=== PATIENT | male | born 1975 | race Caucasian/White ===

== ENCOUNTER 2017-05-21 13:26 | Inpatient (IN) | payer OTHER ==
[~2017-05-21] VITALS: Ht 162.6 cm; Wt 54.2 kg
[2017-05-21] MEDS ORDERED: SOD CHLORIDE 0.9% 1,000 ML IV STA (14:45)
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
[2017-05-21 15:57] LABS: ABNORMAL IP MESSAGE 1; BASOPHIL # 0.1 10^3/ul (0.0-0.1); BASOPHILS % 1.1 % (0.0-2.0); EOSINOPHILS % 0.1 % (0.0-7.0); HEMATOCRIT 34.8 % (42.0-52.0); HEMOGLOBIN 11.6 g/dl (14.0-18.0); LYMPHOCYTES % 12.2 % (15.0-51.0); MEAN CORPUSCULAR HEMOGLOBIN 35.2 pg (29.0-33.0); MEAN CORPUSCULAR HGB CONC 33.3 g/dl (32.0-37.0); MEAN CORPUSCULAR VOLUME 105.5 fl (82.0-101.0); MEAN PLATELET VOLUME 9.8 fl (7.4-10.4); MONOCYTE # 1.5 10^3/ul (0.3-0.9); MONOCYTES % 18.6 % (0.0-11.0); NEUTROPHILS % 67.3 % (39.0-77.0); PLATELET COUNT 177 10^3/UL (140-415); POSITIVE DIFF @See below; RED CELL DISTRIBUTION WIDTH 12.2 % (11.5-14.5); WHITE BLOOD COUNT 8.3 10^3/ul (4.8-10.8)
[2017-05-21 16:15] LABS: ALANINE AMINOTRANSFERASE 260 IU/L (13-69); ALBUMIN 5.2 g/dl (3.3-4.9); ALBUMIN/GLOBULIN RATIO 1.44; ALKALINE PHOSPHATASE 112 IU/L (42-121); ANION GAP 17 (8-16); ASPARTATE AMINO TRANSFERASE 304 IU/L (15-46); BILIRUBIN,INDIRECT 1.3 mg/dl (0-1.1); BILIRUBIN,TOTAL 1.3 mg/dl (0.2-1.3); BLOOD UREA NITROGEN 11 mg/dl (7-20); CALCIUM 10.5 mg/dl (8.4-10.2); CARBON DIOXIDE 25 mmol/L (21-31); CHLORIDE 107 mmol/L (97-110); CREATININE 0.81 mg/dl (0.61-1.24); GLUCOSE 106 mg/dl (70-220); POTASSIUM 3.7 mmol/L (3.5-5.1); SODIUM 145 mmol/L (135-144); TOTAL PROTEIN 8.8 g/dl (6.1-8.1)
[2017-05-21 16:25] LABS: ACETAMINOPHEN < 10.0 ug/ml (10.0-30.0); ETHANOL < 10.0 mg/dl; SALICYLATE < 1.0 mg/dl (5.0-30.0)
[2017-05-21 16:55] LABS: BARBITURATES NEGATIVE (NEGATIVE); BENZODIAZEPINES NEGATIVE (NEGATIVE); CANNABINOIDS NEGATIVE (NEGATIVE); COCAINE NEGATIVE (NEGATIVE); OPIATES NEGATIVE (NEGATIVE)
[2017-05-21] MEDS ORDERED: LORAZEPAM 2 MG INJ ONE (17:26)
[2017-05-21] MEDS ORDERED: LORAZEPAM 2 MG INJ IV ONE ×2 (18:00)
[2017-05-21] MEDS ORDERED: HALOPERIDOL 5 MG INJ IM ONE (18:30)
--- NOTE | 2017-05-21 18:50 | PSY ---
Date/Time of Note Date/Time of Note DATE: 05/21/17 TIME: 18:44 Psychiatric Subjective Eval Consent Pt consented to telemedicine: Yes Subjective Evaluation Patient location: emergency Chief Complaint: [employer] FROM [facility] WITH HALLUCINATIONS WAS GIVEN PSYCH MEDS AT [facility] Reason for consult: Psychosis History of present illness Pt was reportedly arrested and in retirement. He was acting bizarre and psychotic - reporting that he was bit by a spider and going to turn into spiderman. Patient in restraints on gurney. Speech is fast. He appears confused. Speaks Croatian. Officer assisted. Reports seeing imaged. Denies psychiatric history. Reports he is in hospital because " was flirting with another joey, Jesús." Past psychiatric history Denies Hospitalization: no Medical history Problems Medical Problems: (1) Psychosis Status: Acute Allergies: Coded Allergies: Unknown: Unable to obtain (Unverified , 05/21/17) Substance Abuse Substance abuse history: Yes (Alcohol) Social History Level of education: Unknown Occupation/Correction: Unknown Psychiatric Objective Eval Mental Status Examination: Appearance: Disheveled Eye Contact: Poor Psychomotor Activity: Agitated Behavior: Agitated Speech: Pressured AFFECT: Anxious Though Process: Loose Thought Content: Delusions, Hallucinations Suicidal: No Homicidal: No Orientation: x2 Cognition: Alert Insight: Impared Judgement: Impared Laboratory Results Laboratory Tests Test 05/21/17 15:35 05/21/17 15:53 White Blood Count 8.310^3/ul Red Blood Count 3.3010^6/ul Hemoglobin 11.6g/dl Hematocrit 34.8% Mean Corpuscular Volume 105.5fl Mean Corpuscular Hemoglobin 35.2pg Mean Corpuscular Hemoglobin Concent 33.3g/dl Red Cell Distribution Width 12.2% Platelet Count 94561^3/UL Mean Platelet Volume 9.8fl Neutrophils % 67.3% Lymphocytes % 12.2% Monocytes % 18.6% Eosinophils % 0.1% Basophils % 1.1% Nucleated Red Blood Cells % 0.0/100WBC Neutrophils # (Manual) 5.610^3/ul Lymphocytes # 1.010^3/ul Monocytes # 1.510^3/ul Eosinophils # 0.010^3/ul Basophils # 0.110^3/ul Nucleated Red Blood Cells # 0.010^3/ul Sodium Level 145mmol/L Potassium Level 3.7mmol/L Chloride Level 107mmol/L Carbon Dioxide Level 25mmol/L Anion Gap 17 Blood Urea Nitrogen 11mg/dl Creatinine 0.81mg/dl Glucose Level 106mg/dl Calcium Level 10.5mg/dl Total Bilirubin 1.3mg/dl Direct Bilirubin 0.00mg/dl Indirect Bilirubin 1.3mg/dl Aspartate Amino Transf (AST/SGOT) 304IU/L Alanine Aminotransferase (ALT/SGPT) 260IU/L Alkaline Phosphatase 112IU/L Total Protein 8.8g/dl Albumin 5.2g/dl Globulin 3.60g/dl Albumin/Globulin Ratio 1.44 Salicylates Level < 1.0mg/dl Acetaminophen Level < 10.0ug/ml Ethyl Alcohol Level < 10.0mg/dl Urine Opiates Screen NEGATIVE Urine Barbiturates NEGATIVE Urine Amphetamines Screen NEGATIVE Urine Benzodiazepines Screen NEGATIVE Urine Cocaine Screen NEGATIVE Urine Cannabinoids NEGATIVE Assessment and Plan Assessment/Diagnosis [place] I: Unspecified Psychotic Disorder Recommendation/Plan Medication Management Support possible alcohol withdrawal. Psychotherapy N/A Pt. Caregiver/Family Education N/A Follow-up/Disposition Suspect this psychosis is drug related rather than primary psychiatric ( although could be both). Pt was diaphoretic, confused, responding and restless. Lab abnormalities noted. Would err on caution and admit for medical support of possible alcohol related w/d/psychosis/DTs. Recommend sitter. Consider checking TSH as well. Psychiatry re-evaluation once medically stable. NGUYEN AMOR May 21, 2017 18:49
[2017-05-21] MEDS ORDERED: OLANZAPINE 10 MG VIAL IM ONE (19:00)
[2017-05-21] MEDS ORDERED: DIPHENHYDRAMINE 50 MG INJ IM ONE (19:00)
[2017-05-21 20:30] VITALS: TEMP 99.1
[2017-05-21] MEDS ORDERED: ONDANSETRON 4 MG INJ IV PRN (20:30)
[2017-05-21] MEDS ORDERED: DIAZEPAM 5 MG/ML SYG IM ONE (20:30)
[2017-05-21] MEDS ORDERED: ACETAMINOPHEN 650 MG SUPP PR PRN (20:30)
[2017-05-21] MEDS ORDERED: CLONIDINE 0.2 MG/24 HR PATCH TRANSDERM ONE (20:30)
--- NOTE | 2017-05-21 21:57 | RADRPT ---
PROCEDURE: Ultrasound right upper quadrant CLINICAL INDICATION: Elevated LFTs. TECHNIQUE: Barrera scale and color Doppler imaging of the right upper quadrant of the abdomen was perf ormed. COMPARISON: None available. FINDINGS: Pancreas: Not visualized due to overlying bowel gas. Liver: Diffuse increased echogenicity, consistent with fatty infiltration. No focal hepatic lesion. Hepatopedal flow in the main portal vein. Gallbladder: No cholelithiasis, wall thickening, or pericholecystic fluid. Common bile duct: 3 mm in diameter. Right Kidney: 10.6 cm in length.Normal echogenicity. No nephrolithiasis, hydronephrosis, or mass. IMPRESSION: 1. Hepatic steatosis. RPTAT: HLBP .Alexsander Rai MD, MD Date Time Electronically viewed and signed by .Alexsander Rai MD, on 05/21/2017 21:56 .P/
[2017-05-22] VITALS (35 sets, daily range): BP systolic 109–147; BP diastolic 71–96; PULSE 69–101; RESP 13–24; Ht 162.6 cm; Wt 54.2 kg
[2017-05-22] MEDS: LORAZEPAM 2 MG INJ IV PRN ×3 (00:25→21:27)
[2017-05-22] MEDS: DEXTROSE 5%-0.45% NACL 1,000 ML IV SCH ×4 (00:31→21:04)
[2017-05-22 05:13] LABS: BASOPHIL # 0.1 10^3/ul (0.0-0.1); BASOPHILS % 1.2 % (0.0-2.0); EOSINOPHILS # 0.1 10^3/ul (0.0-0.5); HEMATOCRIT 36.4 % (42.0-52.0); LYMPHOCYTES # 1.3 10^3/ul (0.8-2.9); MEAN CORPUSCULAR HEMOGLOBIN 34.9 pg (29.0-33.0); MEAN CORPUSCULAR VOLUME 105.8 fl (82.0-101.0); MONOCYTE # 1.1 10^3/ul (0.3-0.9); MONOCYTES % 18.4 % (0.0-11.0); NEUTROPHILS % 57.1 % (39.0-77.0); PLATELET COUNT 153 10^3/UL (140-415); POSITIVE DIFF @See below; RED BLOOD COUNT 3.44 10^6/ul (4.70-6.10); RED CELL DISTRIBUTION WIDTH 11.9 % (11.5-14.5)
[2017-05-22 05:34] LABS: ALBUMIN 4.6 g/dl (3.3-4.9); ALBUMIN/GLOBULIN RATIO 1.39; BILIRUBIN,INDIRECT 1.2 mg/dl (0-1.1); BILIRUBIN,TOTAL 1.2 mg/dl (0.2-1.3); CALCIUM 9.5 mg/dl (8.4-10.2); CREATININE 0.64 mg/dl (0.61-1.24); POTASSIUM 4.1 mmol/L (3.5-5.1); TOTAL PROTEIN 7.9 g/dl (6.1-8.1)
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
[2017-05-22] MEDS: MULTIVITAMINS 10 ML, THIAMINE 100 MG, FOLIC ACID 1 MG in SOD CHLORIDE 0.9% 1,000 ML IVPB SCH (10:11)
--- NOTE | 2017-05-22 17:13 | PN ---
Date/Time of Note Date/Time of Note DATE: 05/22/17 TIME: 17:12 Assessment/Plan VTE Prophylaxis VTE Prophylaxis Intervention: SCD's Lines/Catheters IV Catheter Type (from Nrs): Peripheral IV Assessment/Plan Chief Complaint/Hosp Course 1. Acute encephalopathy, secondary to alcohol intoxication/withdrawal -Continue banana bag, IV fluid - will provide Librium when patient able swallow after speech/swallow evaluation -Ativan as needed for withdrawal symptoms 2. Alcohol hepatitis -Abdominal ultrasound showed hepatic steatosis -Monitor for now 3. Alcohol abuse -Once patient is more oriented, abstinence will be enforced. Social work to help with that. Prophylaxis: SCDs Problems: Subjective 24 Hr Interval Summary Constitutional: disoriented Exam/Review of Systems Vital Signs Vitals Vital Signs Date Time Temp Pulse Resp B/P Pulse Ox O2 Delivery O2 Flow Rate FiO2 05/22/17 16:10 98.9 05/22/17 16:00 91 16 119/88 97 05/22/17 15:00 Room Air 05/22/17 12:00 2.0 Intake and Output 05/21/17 05/21/17 05/22/17 15:00 23:00 07:00 Intake Total 815 ml Output Total 50 ml Balance 765 ml Exam Psych: confusion Respiratory: clear to auscultation Cardiovascular: regular rate and rhythm Gastrointestinal: soft, No distended Musculoskeletal: nl extremities to inspection Results Result Diagram: 05/22/17 0454 05/22/17 0454 Results 24 hrs Laboratory Tests Test 05/22/17 04:54 White Blood Count 6.0 # Red Blood Count 3.44 L Hemoglobin 12.0 L Hematocrit 36.4 L Mean Corpuscular Volume 105.8 H Mean Corpuscular Hemoglobin 34.9 H Mean Corpuscular Hemoglobin Concent 33.0 Red Cell Distribution Width 11.9 Platelet Count 153 Mean Platelet Volume 11.0 H Neutrophils % 57.1 Lymphocytes % 21.0 Monocytes % 18.4 H Eosinophils % 2.0 Basophils % 1.2 Nucleated Red Blood Cells % 0.0 Neutrophils # (Manual) 3.4 Lymphocytes # 1.3 Monocytes # 1.1 H Eosinophils # 0.1 Basophils # 0.1 Nucleated Red Blood Cells # 0.0 Sodium Level 144 Potassium Level 4.1 Chloride Level 109 Carbon Dioxide Level 27 Anion Gap 12 Blood Urea Nitrogen 7 Creatinine 0.64 Glucose Level 100 Calcium Level 9.5 Magnesium Level 2.0 Total Bilirubin 1.2 Direct Bilirubin 0.00 Indirect Bilirubin 1.2 H Aspartate Amino Transf (AST/SGOT) 278 H Alanine Aminotransferase (ALT/SGPT) 206 H Alkaline Phosphatase 96 Total Protein 7.9 Albumin 4.6 Globulin 3.30 H Albumin/Globulin Ratio 1.39 Medications Medications Current Medications Dextrose/Sodium Chloride (D5-1/2ns) 1,000 ml @ 125 mls/hr Q8H IV Last administered on 05/22/17 10:12; Admin Dose 125 MLS/HR; Start 05/21/17 at 20:26 Ondansetron HCl (Zofran Inj) 4 mg Q6H PRN IV NAUSEA AND/OR VOMITING; Start 08/25 at 20:30 Acetaminophen (Tylenol Supp) 650 mg Q4H PRN [place] PAIN LEVEL 1-3 OR FEVER; Start 05/21/17 at 20:30 Lorazepam 1 mg 1 mg Q2H PRN IV ANXIETY Last administered on 05/22/17 12:58; Admin Dose 1 MG; Start 05/21/17 at 20:30 Multivitamins/ Thiamine HCl/ Folic Acid/Sodium Chloride (Mvi Adult/ Vitamin B1/ Folic Acid/NS) 1,011.2 ml @ 125 mls/ hr DAILY@09 IVPB Last administered on 10:11; Admin Dose 125 MLS/HR; Start 05/22/17 at 09:00; Stop 05/25/17 at 08:00 TARIQ LESTER May 22, 2017 17:13
[2017-05-23] VITALS (24 sets, daily range): BP systolic 71–115; BP diastolic 51–74; PULSE 75–97; RESP 16–31
[2017-05-23] MEDS: LORAZEPAM 2 MG INJ IV PRN ×2 (03:55→12:12)
[2017-05-23] MEDS: DEXTROSE 5%-0.45% NACL 1,000 ML IV SCH ×2 (03:55→12:12)
[2017-05-23 05:46] LABS: ALBUMIN 3.8 g/dl (3.3-4.9); ALBUMIN/GLOBULIN RATIO 1.26; BILIRUBIN,INDIRECT 1.3 mg/dl (0-1.1); BILIRUBIN,TOTAL 1.3 mg/dl (0.2-1.3); CALCIUM 8.8 mg/dl (8.4-10.2); CREATININE 0.73 mg/dl (0.61-1.24); TOTAL PROTEIN 6.8 g/dl (6.1-8.1)
[2017-05-23 06:08] LABS: POTASSIUM 2.9 mmol/L (3.5-5.1)
[2017-05-23] MEDS ORDERED: POTASSIUM CHLORIDE (SR) 20 MEQ TAB PO ONE (06:21)
[2017-05-23] MEDS: MULTIVITAMINS 10 ML, THIAMINE 100 MG, FOLIC ACID 1 MG in SOD CHLORIDE 0.9% 1,000 ML IVPB SCH (09:14)
--- NOTE | 2017-05-23 13:47 | PN ---
Date/Time of Note Date/Time of Note DATE: 05/23/17 TIME: 13:47 Assessment/Plan VTE Prophylaxis VTE Prophylaxis Intervention: SCD's Lines/Catheters IV Catheter Type (from Nrs): Peripheral IV Assessment/Plan Chief Complaint/Hosp Course 1. Acute encephalopathy, secondary to alcohol intoxication/withdrawal -Continue banana bag, IV fluid - will provide Librium when patient able swallow after speech/swallow evaluation -Ativan as needed for withdrawal symptoms 2. Alcohol hepatitis -Abdominal ultrasound showed hepatic steatosis -Monitor for now 3. Alcohol abuse -Once patient is more oriented, abstinence will be enforced. Social work to help with that. Prophylaxis: SCDs Problems: Subjective 24 Hr Interval Summary Constitutional: disoriented Exam/Review of Systems Vital Signs Vitals Vital Signs Date Time Temp Pulse Resp B/P Pulse Ox O2 Delivery O2 Flow Rate FiO2 05/23/17 13:26 90 18 90/59 97 Room Air 05/23/17 09:00 2.0 05/23/17 08:00 98.9 Intake and Output 05/22/17 05/22/17 05/23/17 15:00 23:00 07:00 Intake Total 875 ml 1011.2 ml 1100 ml Output Total 670 ml 195 ml 810 ml Balance 205 ml 816.2 ml 290 ml Exam Psych: confusion Respiratory: clear to auscultation Cardiovascular: regular rate and rhythm Gastrointestinal: soft, No distended Musculoskeletal: nl extremities to inspection Results Result Diagram: 05/22/17 0454 05/23/17 0440 Results 24 hrs Laboratory Tests Test 05/23/17 04:40 Sodium Level 136 Potassium Level 2.9 *L Chloride Level 103 Carbon Dioxide Level 26 Anion Gap 10 Blood Urea Nitrogen 3 L Creatinine 0.73 Glucose Level 132 Calcium Level 8.8 Total Bilirubin 1.3 Direct Bilirubin 0.00 Indirect Bilirubin 1.3 H Aspartate Amino Transf (AST/SGOT) 216 H Alanine Aminotransferase (ALT/SGPT) 157 H Alkaline Phosphatase 103 Total Protein 6.8 # Albumin 3.8 Globulin 3.00 Albumin/Globulin Ratio 1.26 Lipase 33 Medications Medications Current Medications Dextrose/Sodium Chloride (D5-1/2ns) 1,000 ml @ 125 mls/hr Q8H IV Last administered on 05/23/17t 12:12; Admin Dose 125 MLS/HR; Start 05/21/17 at 20:26 Ondansetron HCl (Zofran Inj) 4 mg Q6H PRN IV NAUSEA AND/OR VOMITING; Start 08/25 at 20:30 Acetaminophen (Tylenol Supp) 650 mg Q4H PRN [place] PAIN LEVEL 1-3 OR FEVER; Start 05/21/17 at 20:30 Lorazepam 1 mg 1 mg Q2H PRN IV ANXIETY Last administered on 05/23/17 12:12; Admin Dose 1 MG; Start 05/21/17 at 20:30 Multivitamins/ Thiamine HCl/ Folic Acid/Sodium Chloride (Mvi Adult/ Vitamin B1/ Folic Acid/NS) 1,011.2 ml @ 125 mls/ hr DAILY@09 IVPB Last administered on 09:14; Admin Dose 125 MLS/HR; Start 05/22/17 at 09:00; Stop 05/25/17 at 08:00 TARIQ LESTER May 23, 2017 13:47
[2017-05-23] MEDS: 1/2 NS + KCL 20 MEQ 1,000 ML IV SCH ×2 (15:06→21:27)
[2017-05-23] MEDS ORDERED: SOD CHLORIDE 0.9% 1,000 ML IV ONE (16:00)
[2017-05-24] VITALS (12 sets, daily range): BP systolic 104–118; BP diastolic 68–80; PULSE 61–75; RESP 16–21
[2017-05-24] MEDS: 1/2 NS + KCL 20 MEQ 1,000 ML IV SCH ×2 (05:43→21:00)
[2017-05-24 08:14] LABS: CALCIUM 8.8 mg/dl (8.4-10.2); CREATININE 0.67 mg/dl (0.61-1.24); MAGNESIUM 2.1 mg/dl (1.7-2.5); PHOSPHORUS 2.9 mg/dl (2.5-4.9); POTASSIUM 3.8 mmol/L (3.5-5.1)
[2017-05-24] MEDS: MULTIVITAMINS 10 ML, THIAMINE 100 MG, FOLIC ACID 1 MG in SOD CHLORIDE 0.9% 1,000 ML IVPB SCH (09:05)
--- NOTE | 2017-05-24 18:57 | PN ---
Date/Time of Note Date/Time of Note DATE: 05/24/17 TIME: 18:56 Assessment/Plan VTE Prophylaxis VTE Prophylaxis Intervention: SCD's Lines/Catheters IV Catheter Type (from Nrs): Peripheral IV Assessment/Plan Chief Complaint/Hosp Course 1. Acute encephalopathy, secondary to alcohol intoxication/withdrawal-improved -Continue banana bag, IV fluid -Start Librium -Ativan as needed for withdrawal symptoms 2. Alcohol hepatitis -Abdominal ultrasound showed hepatic steatosis -Monitor for now 3. Alcohol abuse -Once patient is more oriented, abstinence will be enforced. Social work to help with that. Prophylaxis: SCDs Problems: Subjective 24 Hr Interval Summary Constitutional: no complaints Exam/Review of Systems Vital Signs Vitals Vital Signs Date Time Temp Pulse Resp B/P Pulse Ox O2 Delivery O2 Flow Rate FiO2 05/24/17 16:00 71 05/24/17 15:32 97.9 16 106/70 98 05/23/17 13:26 Room Air 05/23/17 09:00 2.0 Intake and Output 05/23/17 05/23/17 05/24/17 15:00 23:00 07:00 Intake Total 1250 ml 1911 ml 1430 ml Output Total 590 ml 1200 ml 2200 ml Balance 660 ml 711 ml -770 ml Exam Constitutional: alert, oriented Respiratory: clear to auscultation Cardiovascular: regular rate and rhythm Gastrointestinal: soft, No distended Musculoskeletal: nl extremities to inspection Results Result Diagram: 05/22/17 0454 05/24/17 0646 Results 24 hrs Laboratory Tests Test 05/24/17 06:46 Sodium Level 139 Potassium Level 3.8 Chloride Level 107 Carbon Dioxide Level 25 Anion Gap 11 Blood Urea Nitrogen 7 Creatinine 0.67 Glucose Level 77 # Calcium Level 8.8 Phosphorus Level 2.9 Magnesium Level 2.1 Medications Medications Current Medications Ondansetron HCl (Zofran Inj) 4 mg Q6H PRN IV NAUSEA AND/OR VOMITING; Start 08/25 at 20:30 Acetaminophen (Tylenol Supp) 650 mg Q4H PRN [place] PAIN LEVEL 1-3 OR FEVER; Start 05/21/17 at 20:30 Lorazepam 1 mg 1 mg Q2H PRN IV ANXIETY Last administered on 05/23/17t 12:12; Admin Dose 1 MG; Start 05/21/17 at 20:30 Multivitamins 10 ml/Thiamine HCl 100 mg/Folic Acid 1 mg/Sodium Chloride 1,011.2 ml @ 125 mls/ hr DAILY@09 IVPB Last administered on 05/24/17 09:05; Admin Dose 125 MLS/HR; Start 05/22/17 at 09:00; Stop 05/25/17 at 08:00 Potassium Chloride/Sodium Chloride (1/2 NS + KCl 20 Meq) 1,000 ml @ 100 mls/hr Q10H IV Last administered on 05/24/17 05:43; Admin Dose 100 MLS/HR; Start at 14:00 TARIQ LESTER May 24, 2017 18:57
[2017-05-24] MEDS: CHLORDIAZEPOXIDE 25 MG CAP PO SCH (21:00)
[2017-05-25] VITALS (7 sets, daily range): BP systolic 122–125; BP diastolic 68–77; PULSE 60–74; RESP 16–20
[2017-05-25] MEDS: 1/2 NS + KCL 20 MEQ 1,000 ML IV SCH (05:43)
[2017-05-25] MEDS: CHLORDIAZEPOXIDE 25 MG CAP PO SCH (08:11)
--- NOTE | 2017-05-25 11:04 | PDOCDIS ---
Discharge Instructions CONDITION Patient Condition: Good HOME CARE INSTRUCTIONS: Diet Instructions: Regular ACTIVITY: Activity Restrictions: No Restrictions FOLLOW UP/APPOINTMENTS Follow-up Plan F/U WITH A PCP IN 1-2 WEEKS NO MORE ALCOHOL CONSUMPTION TARIQ LESTER May 25, 2017 11:04
--- NOTE | 2017-05-25 14:16 | DS ---
Date/Time of Note Date/Time of Note DATE: 05/25/17 TIME: 14:13 Discharge Summary Admission/Discharge Info Admit Date/Time May 21, 2017 at 20:30 Discharge Date/Time May 25, 2017 Discharge Diagnosis 1. Acute encephalopathy, secondary to alcohol intoxication/withdrawal-resolved -Status post banana bag, IV fluid 2. Alcohol hepatitis-improving -Abdominal ultrasound showed hepatic steatosis 3. Alcohol abuse -Cessation advised Patient Condition: Good Hospital Course Patient is a 41-year-old male with a history of alcohol abuse who was brought to the ER by [employer] for altered mentation. When he initially presented to the ER he was hallucinating and was showing some bizarre behavior requiring restraining. Patient was admitted for alcohol withdrawal, she was given a banana bag and Ativan as needed. Patient did have alcohol hepatitis, his LFTs did trend down and his mentation did improve. Patient did have a garage that he resided in. On day of discharge patient vitals, labs and physical exam are stable, he had no further acute complaints and patient was alert and no longer had tremors. Home Meds Unable to Obtain Active Prescriptions or Reported Meds Follow-up Plan F/U WITH A PCP IN 1-2 WEEKS NO MORE ALCOHOL CONSUMPTION Primary Care Provider Care Physician No Primary Time spent on discharge: > 30 minutes TARIQ LESTER May 25, 2017 14:16
== END 2017-05-25 14:11 | disposition home or self-care (01) | DRG 885 ==
LOC: E/R 13:26 → ICU 20:30 → TEL 05-23 14:34
PROVIDERS: ADMIT Internal Medicine; ATTEND Internal Medicine
DX: F29 Unspecified psychosis not due to a substance or known physiological condition (principal); K70.10 Alcoholic hepatitis without ascites
CPT/HCPCS: 36415; 76705; 80048; 80053; 80306; 80307; 83690; 83735; 84100; 85025; 87081; 96372; 96374; 96376; J1200; J1630; J2060; J3360; J3411; J3480; J7030; J7042

== ENCOUNTER 2017-05-31 14:54 | Emergency (ER) | payer SELFPAY ==
[~2017-05-31] VITALS: Wt 50.5 kg
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
== END 2017-05-31 17:30 | disposition home or self-care (01) ==
LOC: FTE 14:54
DX: Z48.02 Encounter for removal of sutures (principal)
CPT/HCPCS: 99281